=== PATIENT | female | born 1970 ===

== ENCOUNTER 2017-01-29 13:06 | Emergency (ER) | payer MEDICAID ==
[2017-01-29 13:07] VITALS: BMI 29.2
[2017-01-29 13:21] VITALS: RESP 17; TEMP 97.9
--- NOTE | 2017-01-29 13:51 | ED PDOC ---
Arrival/HPI - General Chief Complaint: Lower Extremity Problem/Injury Time Seen by Provider: 01/29/17 13:26 Historian: Patient - History of Present Illness Narrative History of Present Illness (Text): 01/29/17 13:47 This 46 yo female with pmh dvt, presents to this ED requesting ultrasound of her left lower extremity. Patient stated she slipped and fell down on her left side, when she was walking downstairs. Patient stated left lower leg has been gradually swelling. Patient saw Dr. Humphrey, who recommended patient to come to ED for Venous Doppler of left lower extremity. Denies sob, cp, knee pain, hip pain, dizziness, recent travel or sick contac. Patient is currently taking Eliquis 5mg tab daily. Patient stated she is compliant to her medication. She noted she forgot to take her medication today. Time/Duration: Other (2 days) Context: Home Past Medical History - Provider Review Nursing Documentation Reviewed: Yes - Infectious Disease Hx of Infectious Diseases: None - Tetanus Immunization Tetanus Immunization: Unknown - Cardiac Hx Cardiac Disorders: No - Pulmonary Hx Respiratory Disorders: No - Neurological Hx Neurological Disorder: No - HEENT Hx HEENT Disorder: No - Renal Hx Renal Disorder: No - Endocrine/Metabolic Hx Endocrine Disorders: No - Hematological/Oncological Hx Blood Disorders: No - Integumentary Hx Dermatological Disorder: No - Musculoskeletal/Rheumatological Hx Musculoskeletal Disorders: Yes Hx Back Pain: Yes Other/Comment: tendonitis - Gastrointestinal Hx Gastrointestinal Disorders: Yes Hx Gastroesophageal Reflux: Yes - Genitourinary/Gynecological Hx Genitourinary Disorders: No - Psychiatric Hx Psychophysiologic Disorder: No Hx Substance Use: No - Surgical History Hx Appendectomy: Yes Hx Hysterectomy: Yes Hx Tubal Ligation: Yes - Anesthesia Hx Anesthesia: Yes Hx Anesthesia Reactions: No Hx Malignant Hyperthermia: No - Suicidal Assessment Feels Threatened In Home Enviroment: No Family/Social History - Physician Review Nursing Documentation Reviewed: Yes Family/Social History: No Known Family HX Smoking Status: Never Smoked Hx Alcohol Use: No Hx Substance Use: No Hx Substance Use Treatment: No Allergies/Home Meds Allergies/Adverse Reactions: Allergies aspirin Allergy (Verified 01/29/17 13:18) SHORTNESS OF BREATH codeine Allergy (Verified 01/29/17 13:18) SHORTNESS OF BREATH Home Medications: Home Meds Medication Instructions Recorded Confirmed Ondansetron [Zofran] 4 mg PO TID 04/12/15 01/29/17 Ranitidine HCl [Ranitidine 150] 150 mg PO DAILY 04/12/15 01/29/17 Review of Systems - Review of Systems Constitutional: Normal. absent: Fatigue, Weight Change, Fevers Eyes: Normal ENT: Normal Respiratory: Normal Cardiovascular: Normal Gastrointestinal: Normal Genitourinary Female: Normal Musculoskeletal: Other (see HPI) Skin: Normal Neurological: Normal Endocrine: Normal Hemo/Lymphatic: Normal Psychiatric: Normal Physical Exam Vital Signs Temp Pulse Resp BP Pulse Ox 01/29/17 13:21 97.9 F 70 17 149/93 H 98 Temperature: Afebrile Blood Pressure: Normal Pulse: Regular Respiratory Rate: Normal Appearance: Positive for: Well-Appearing, Non-Toxic, Comfortable Pain Distress: None Mental Status: Positive for: Alert and Oriented X 3 - Systems Exam Head: Present: Atraumatic, Normocephalic Pupils: Present: PERRL Extroacular Muscles: Present: EOMI Conjunctiva: Present: Normal Mouth: Present: Moist Mucous Membranes Neck: Present: Normal Range of Motion Respiratory/Chest: Present: Clear to Auscultation, Good Air Exchange. No: Respiratory Distress, Accessory Muscle Use Cardiovascular: Present: Regular Rate and Rhythm, Normal S1, S2. No: Murmurs Abdomen: Present: Normal Bowel Sounds. No: Tenderness, Distention, Peritoneal Signs Back: Present: Normal Inspection Upper Extremity: Present: Normal Inspection. No: Cyanosis, Edema Lower Extremity: Present: Edema (trace), CALF TENDERNESS, NORMAL PULSES, Normal ROM, Ryan's Sign, Tenderness, Swelling, Neurovascularly Intact, Capillary Refill < 2 s, Other (Superficial abrasion left lower leg. No cellulitis or compartment syndrome). No: Cyanosis, Erythema, Deformity, Temperature Abnormalties Neurological: Present: GCS=15, CN II-XII Intact, Speech Normal, Motor Func Grossly Intact, Normal Sensory Function, Normal Cerebellar Funct, Gait Normal, Memory Normal Skin: Present: Warm, Dry, Normal Color. No: Rashes Psychiatric: Present: Alert, Oriented x 3, Normal Insight, Normal Concentration Medical Decision Making ED Course and Treatment: 01/29/17 16:11 Re-evaluation. Patient feels better. Discussed results and plan with patient who expresses understanding. All questions answered and there is agreement with the plan to discharge home with instructions. Patient stable for discharge. Return if symptoms persist or worsen. Re-evaluation Time: 16:11 Reassessment Condition: Re-examined, Improved - RAD Interpretation Narrative RAD Interpretations (Text): 01/29/17 16:09 Accession No. : [id number] Patient Name / ID : JUAN JOSE NAVA / [id number] Exam Date : 01/29/2017 15:39:38 ( Approved ) Study Comment : Sex / Age : F / 46Y Creator : Macario Gordon MD Dictator : Macario Gordon MD Sales And Service Change Leader : Security Strategist : Macario Gordon MD Approver2 : Report Date : 01/29/2017 16:03:12 My Comment : PROCEDURE: Radiographs of the left tibia and fibula. HISTORY: pain COMPARISON: None available. TECHNIQUE: Frontal and lateral views obtained. FINDINGS: BONES: No fracture or destructive lesion. JOINT SPACES: Unremarkable. OTHER FINDINGS: None. IMPRESSION: Unremarkable radiographs of the left tibia and fibula. 01/29/17 16:09 Venous Doppler Left Lower Extremity: no DVT as per US Radiology Orders: 01/29/17 13:45 DUPLEX LOWER EXTRM VEIN LEFT [US] Stat 01/29/17 13:46 TIBIA FIBULA LEFT [RAD] Stat Disposition/Present on Arrival - Present on Arrival Any Indicators Present on Arrival: No History of DVT/PE: Yes History of Uncontrolled Diabetes: No Urinary Catheter: No History of Decub. Ulcer: No History Surgical Site Infection Following: None - Disposition Have Diagnosis and Disposition been Completed?: Yes Diagnosis: Left leg swelling, Contusion Disposition: HOME/ ROUTINE Disposition Time: 16:11 Patient Plan: Discharge Condition: GOOD Discharge Instructions (ExitCare): Leg Edema (ED) Additional Instructions: Call private doctor for follow up visit in 1-2 days. Keep leg elevated, and rest. If left swelling perist or worsen, you may need to have a repeat ultrasound oif your left leg in 7 days. Continue with Eliquis as recommended by your doctor. Forms: WORK NOTE
--- NOTE | 2017-01-29 16:05 | RAD ---
PROCEDURE: Radiographs of the left tibia and fibula. HISTORY: pain COMPARISON: None available. TECHNIQUE: Frontal and lateral views obtained. FINDINGS: BONES: No fracture or destructive lesion. JOINT SPACES: Unremarkable. OTHER FINDINGS: None. IMPRESSION: Unremarkable radiographs of the left tibia and fibula.
[2017-01-29 16:22] VITALS: BP 145/86; PULSE 86; O2SAT 99
--- NOTE | 2017-01-29 20:38 | US ---
PROCEDURE: Left lower extremity venous US HISTORY: Leg pain and swelling. Evaluate for DVT. PHYSICIAN(S): Kevin Haynes MD. TECHNIQUE: Duplex sonography and color-flow Doppler with graded compression were used to evaluate the deep venous system of the left lower extremity. FINDINGS: The visualized deep venous system of the left lower extremity is sonographically normal and compressible. Normal wave forms and augmentation are seen. There is no sonographic evidence for deep venous thrombosis in the visualized segments of the left lower extremity. IMPRESSION: 1. No sonographic evidence for deep venous thrombosis in the visualized segments of the left lower extremity.
== END 2017-01-29 16:23 | disposition home or self-care (01) ==
LOC: ED 13:06
DX: M79.89 Other specified soft tissue disorders (principal); S80.12XA Contusion of left lower leg, initial encounter; W01.0XXA Fall on same level from slipping, tripping and stumbling without subsequent striking against object, initial encounter; Y92.009 Unspecified place in unspecified non-institutional (private) residence as the place of occurrence of the external cause